=== PATIENT | female | born 1995 | race Caucasian/White ===

== ENCOUNTER 2020-02-26 11:17 | Outpatient (REF) | payer SELFPAY ==
[2020-02-28 09:11] LABS: COVID-19 RT-PCR UVMMC Result Negative (Negative)
== END 2020-02-26 11:37 ==
LOC: LBN 11:17
PROVIDERS: Visit Provider Nurse Practitioner Adult Health
DX: Z11.59 Encounter for screening for other viral diseases (principal)
CPT/HCPCS: U0003

== ENCOUNTER 2020-03-20 20:35 | Outpatient (REF) | payer SELFPAY ==
[2020-03-21 17:23] LABS: COVID-19 RT-PCR Result NEGATIVE (Negative)
== END 2020-03-20 20:55 ==
LOC: LBN 20:35
PROVIDERS: Visit Provider Family Medicine
DX: Z20.828 Contact with and (suspected) exposure to other viral communicable diseases (principal)
CPT/HCPCS: U0003

== ENCOUNTER 2020-04-15 18:26 | Outpatient (REF) | payer SELFPAY ==
[2020-04-16 11:02] LABS: COVID-19 RT-PCR UVMMC Result Negative (Negative)
== END 2020-04-15 18:46 ==
LOC: LBN 18:26
PROVIDERS: Visit Provider Nurse Practitioner Adult Health
DX: Z20.828 Contact with and (suspected) exposure to other viral communicable diseases (principal)
CPT/HCPCS: U0003